=== PATIENT | male | born 1985 | race Caucasian/White ===

== ENCOUNTER 2020-06-10 20:13 | Inpatient (IN) | payer MEDICAID ==
[~2020-06-10] VITALS: Ht 170.2 cm; Wt 79.1 kg
[2020-06-10] MEDS ORDERED: SODIUM CHLORIDE 0.9% 1,000 ML IV ONE (20:45)
[2020-06-10 21:11] LABS: BG BASE EXCESS -2.5 mmol/L (-2.0-2.0); BG CARBOXYHEMOGLOBIN 1.2 % (0.5-1.5); BG FRACTION INSPIRED OXYGEN 21; BG HCO3 ACT 18.3 mmol/L (22.0-26.0); BG METHEMOGLOBIN 0.2 % (0.0-1.5); BG OXYGEN SATURATION 93.9 % (92.0-98.5); BG OXYHEMOGLOBIN 92.6 % (94.0-97.0); BG PCO2 22.6 mmHg (35.0-45.0); BG PH 7.526 (7.350-7.450); BG PO2 66.4 mmHg (75.0-100.0); BG SAMPLE SITE RIGHT RADIAL; BG TOTAL HEMOGLOBIN 13.6 g/dL (12.0-18.0); BG VENT MODE ROOM AIR
[2020-06-10 21:51] LABS: BASOPHILS % 0.6 % (0.0-2.0); HEMATOCRIT. 39.1 % (42.0-52.0); HEMOGLOBIN. 13.6 g/dL (14.0-18.0); LYMPHOCYTES % 14.7 % (20.0-50.0); MEAN CORPUSCULAR HEMOGLOBIN 33.2 pg (28.0-32.0); MEAN CORPUSCULAR VOLUME 95.8 fL (80.0-94.0); MEAN PLATELET VOLUME 10.6 fl (7.4-10.4); MONOCYTES % 7.3 % (2.0-8.0); NEUTROPHILS % 77.4 % (40.0-76.0); PLATELET 178 x1000/uL (130-400); RED BLOOD CELL COUNT 4.08 mill/uL (4.7-6.1); RED CELL DISTRIBUTION WIDTH 15.4 % (11.6-14.6)
[2020-06-10 21:52] LABS: CHLORIDE 86 mEq/L (98-107)
[2020-06-10 21:56] LABS: CLARITY URINE CLEAR (CLEAR); COLOR URINE ORANGE (YELLOW); ETHANOL BLOOD 105 mg/dL; KETONES URINE TRACE (NEGATIVE); LEUKOCYTE ESTERASE URINE 1+ (NEGATIVE); NITRITE URINE POSITIVE (NEGATIVE); OCCULT BLOOD URINE NEGATIVE (NEGATIVE); PROTEIN URINE 1+ (NEGATIVE); SPECIFIC GRAVITY URINE 1.032 (1.005-1.030); UROBILINOGEN URINE 0.2 E.U./dL (0.2-1.0)
[2020-06-10 22:01] LABS: D-DIMER 1.32 mg/L FEU (<0.50); INR 1.2
[2020-06-10 22:11] LABS: *BARBITURATES SCREEN URINE NEGATIVE (NEGATIVE)
[2020-06-10 22:12] LABS: *AMPHETAMINES SCREEN URINE PRESUMTIVE POSITIVE (NEGATIVE); *BENZODIAZEPINES SCREEN URINE NEGATIVE (NEGATIVE); *COCAINE SCREEN URINE NEGATIVE (NEGATIVE); OPIATES URINE SCREEN NEGATIVE (NEGATIVE); PHENCYCLIDINE URINE SCREEN NEGATIVE (NEGATIVE)
[2020-06-10 22:13] LABS: CANNABINOID URINE SCREEN NEGATIVE (NEGATIVE)
[2020-06-10 22:22] LABS: METHADONE URINE SCREEN NEGATIVE (NEGATIVE)
[2020-06-10] MEDS ORDERED: PIPERACILLIN/TAZOBACTAM 3.375GM/50ML PREMIX IV ONE (22:45)
[2020-06-10] MEDS ORDERED: ENOXAPARIN 60MG/0.6ML SYR SUBCUT ONE (22:45)
[2020-06-10] MEDS ORDERED: VANCOMYCIN 1 G PREMIX 200 ML IV SCH (22:45)
[2020-06-10] MEDS ORDERED: DEXAMETHASONE 10 MG/ML VIAL IV ONE (22:45)
[2020-06-10] MEDS ORDERED: ALBUTEROL 6.7GM HFA INHALER ORI ONE (22:45)
[2020-06-10] MEDS ORDERED: SODIUM BICARBONATE 8.4% 1 MEQ/ML 50ML SYR IV NR (23:00)
[2020-06-10] MEDS ORDERED: PIPERACILLIN/TAZ 3.375G PREMIX 50 ML IV NR (23:15)
[2020-06-10] MEDS ORDERED: MORPHINE SULFATE 4 MG/ML CPJ (NOT FOR IM USE) IV NR (23:45)
[2020-06-10] MEDS ORDERED: IOHEXOL-350 100 ML BOTTLE ONE (23:50)
[2020-06-11] MEDS ORDERED: MAGNESIUM/ALUMINUM HYDROXIDE/SIMETHICONE 30ML UDC PO PRN (00:15)
[2020-06-11] MEDS ORDERED: ONDANSETRON HCL 4MG/2ML INJ IV PRN (00:15)
[2020-06-11] MEDS ORDERED: ONDANSETRON HCL 4MG/2ML INJ IV NR (00:15)
[2020-06-11] MEDS ORDERED: ACETAMINOPHEN 325MG TABLET PO PRN (00:15)
[2020-06-11] MEDS ORDERED: AZITHROMYCIN 500 MG in DEXT 5% WATER 250 ML IV SCH (01:00)
[2020-06-11] MEDS ORDERED: CEFTRIAXONE 1 G PREMIX 50 ML IV SCH (08:00)
[2020-06-11 09:48] VITALS: BP 120/49
[2020-06-11 12:00] VITALS: BP 123/49
[2020-06-11] MEDS ORDERED: FUROSEMIDE 40MG/4ML VIAL IVP NR (12:00)
[2020-06-11] MEDS: THIAMINE HCL 100MG TABLET PO SCH (12:46)
[2020-06-11] MEDS: FOLIC ACID 1MG TABLET PO SCH (12:46)
[2020-06-11] MEDS: MULTIVITAMINS,THER W-MINERALS TABLET PO SCH (12:46)
[2020-06-11] MEDS: CEFTRIAXONE 1,000 MG in DEXTROSE 5% WATER 50 ML IV SCH (12:47)
[2020-06-11] MEDS: ENOXAPARIN 40MG/0.4ML SYR SUBCUT SCH (12:47)
[2020-06-11 16:00] VITALS: BP 110/52
[2020-06-11 20:00] VITALS: BP 121/58
[2020-06-11] MEDS: AZITHROMYCIN 500 MG in DEXT 5% WATER 250 ML IV SCH (21:35)
[2020-06-12] VITALS (9 sets, daily range): BP systolic 93–127; BP diastolic 41–97
[2020-06-12 06:21] LABS: CHLORIDE 90 mEq/L (98-107)
[2020-06-12 06:48] LABS: BASOPHILS % 0.3 % (0.0-2.0); HEMOGLOBIN. 12.2 g/dL (14.0-18.0); LYMPHOCYTES % 11.8 % (20.0-50.0); MEAN CORPUSCULAR VOLUME 97.9 fL (80.0-94.0); MEAN PLATELET VOLUME 10.9 fl (7.4-10.4); NEUTROPHILS % 81.9 % (40.0-76.0); PLATELET 144 x1000/uL (130-400); RED BLOOD CELL COUNT 3.68 mill/uL (4.7-6.1); RED CELL DISTRIBUTION WIDTH 15.8 % (11.6-14.6)
[2020-06-12] MEDS: LORAZEPAM 2MG/ML CPJ IV PRN ×2 (08:18→16:08)
[2020-06-12] MEDS: CHLORDIAZEPOXIDE 25MG CAPSULE PO SCH ×3 (08:18→18:13)
[2020-06-12] MEDS: FOLIC ACID 1MG TABLET PO SCH (09:33)
[2020-06-12] MEDS: THIAMINE HCL 100MG TABLET PO SCH (09:33)
[2020-06-12] MEDS: MULTIVITAMINS,THER W-MINERALS TABLET PO SCH (09:33)
[2020-06-12] MEDS: ENOXAPARIN 40MG/0.4ML SYR SUBCUT SCH (09:34)
[2020-06-12] MEDS: CEFTRIAXONE 1,000 MG in DEXTROSE 5% WATER 50 ML IV SCH (09:34)
[2020-06-12] MEDS ORDERED: IPRATROPIUM/ALBUTEROL 0.5-3(2.5)MG/3ML NEB HHN PRN (10:30)
[2020-06-12] MEDS ORDERED: HALOPERIDOL LACTATE 5MG/ML VIAL IM PRN ×2 (18:45→21:00)
[2020-06-12] MEDS ORDERED: LORAZEPAM 2MG/ML CPJ IM PRN (21:00)
[2020-06-12] MEDS: AZITHROMYCIN 500 MG in DEXT 5% WATER 250 ML IV SCH (21:00)
[2020-06-13] VITALS (43 sets, daily range): BP systolic 111–187; BP diastolic 24–134
[2020-06-13] MEDS ORDERED: FOLIC ACID 1 MG, THIAMINE HCL 100 MG, MVI, ADULT NO.1 10 ML in DEXTROSE 5% WATER 1,000 ML IV NR (01:00)
[2020-06-13] MEDS: DIPHENHYDRAMINE 50MG/ML VIAL IV PRN ×4 (02:24→19:08)
[2020-06-13] MEDS: LORAZEPAM 2MG/ML CPJ IV PRN ×5 (03:25→23:36)
[2020-06-13 04:56] LABS: BASOPHILS % 0.9 % (0.0-2.0); EOSINOPHILS % 0.5 % (0.0-5.0); HEMATOCRIT. 38.2 % (42.0-52.0); HEMOGLOBIN. 12.7 g/dL (14.0-18.0); MEAN CORPUSCULAR HEMOGLOBIN 32.4 pg (28.0-32.0); MEAN CORPUSCULAR VOLUME 97.8 fL (80.0-94.0); MEAN PLATELET VOLUME 9.9 fl (7.4-10.4); MONOCYTES % 10.4 % (2.0-8.0); NEUTROPHILS % 70.2 % (40.0-76.0); PLATELET 128 x1000/uL (130-400); RED CELL DISTRIBUTION WIDTH 15.8 % (11.6-14.6)
[2020-06-13 05:03] LABS: CHLORIDE 98 mEq/L (98-107)
[2020-06-13] MEDS: HALOPERIDOL LACTATE 5MG/ML VIAL IM PRN ×3 (05:07→21:33)
[2020-06-13] MEDS: CLONIDINE 0.1MG TABLET PO PRN ×2 (08:10→09:20)
[2020-06-13] MEDS: CHLORDIAZEPOXIDE 25MG CAPSULE PO SCH ×4 (08:11→15:45)
[2020-06-13] MEDS: ENOXAPARIN 40MG/0.4ML SYR SUBCUT SCH (08:20)
[2020-06-13] MEDS ORDERED: DEXT 5%/0.9% NACL 1,000 ML IV SCH (09:00)
[2020-06-13] MEDS ORDERED: POTASSIUM CHLORIDE INJ 10 MEQ in DEXT 5%/0.9% NACL 1,000 ML IV SCH (09:15)
[2020-06-13] MEDS: CEFTRIAXONE 1,000 MG in DEXTROSE 5% WATER 50 ML IV SCH (10:09)
[2020-06-13] MEDS: POTASSIUM CHLORIDE INJ 10 MEQ in DEXT 5%/0.9% NACL 1,000 ML IV SCH ×2 (10:09→23:47)
[2020-06-13] MEDS: AZITHROMYCIN 500 MG in DEXT 5% WATER 250 ML IV SCH (20:45)
[2020-06-14] VITALS (54 sets, daily range): BP systolic 84–182; BP diastolic 46–155
[2020-06-14] MEDS: DIPHENHYDRAMINE 50MG/ML VIAL IV PRN ×3 (03:28→20:10)
[2020-06-14] MEDS: LORAZEPAM 2MG/ML CPJ IV PRN ×4 (03:28→21:02)
[2020-06-14 04:53] LABS: BASOPHILS % 0.5 % (0.0-2.0); EOSINOPHILS % 1.9 % (0.0-5.0); HEMATOCRIT. 37.8 % (42.0-52.0); HEMOGLOBIN. 12.5 g/dL (14.0-18.0); MEAN CORPUSCULAR HEMOGLOBIN 32.5 pg (28.0-32.0); MEAN CORPUSCULAR VOLUME 98.5 fL (80.0-94.0); MEAN PLATELET VOLUME 9.7 fl (7.4-10.4); MONOCYTES % 9.8 % (2.0-8.0); NEUTROPHILS % 67.8 % (40.0-76.0); PLATELET 131 x1000/uL (130-400); RED BLOOD CELL COUNT 3.84 mill/uL (4.7-6.1); RED CELL DISTRIBUTION WIDTH 16.2 % (11.6-14.6)
[2020-06-14 05:27] LABS: CHLORIDE 109 mEq/L (98-107)
[2020-06-14] MEDS: HALOPERIDOL LACTATE 5MG/ML VIAL IM PRN ×2 (08:33→16:51)
[2020-06-14] MEDS: CEFTRIAXONE 1,000 MG in DEXTROSE 5% WATER 50 ML IV SCH (08:33)
[2020-06-14] MEDS: ENOXAPARIN 40MG/0.4ML SYR SUBCUT SCH (08:36)
[2020-06-14] MEDS: CHLORDIAZEPOXIDE 25MG CAPSULE PO SCH ×3 (08:36→16:04)
[2020-06-14] MEDS: FOLIC ACID 1 MG, THIAMINE HCL 100 MG, MVI, ADULT NO.1 10 ML in DEXTROSE 5% WATER 1,000 ML IV SCH (09:23)
[2020-06-14] MEDS: POTASSIUM CHLORIDE INJ 10 MEQ in DEXT 5%/0.9% NACL 1,000 ML IV SCH (18:25)
[2020-06-14] MEDS: AZITHROMYCIN 500 MG in DEXT 5% WATER 250 ML IV SCH (20:10)
[2020-06-15] VITALS (85 sets, daily range): BP systolic 113–173; BP diastolic 64–148
[2020-06-15] MEDS: HALOPERIDOL LACTATE 5MG/ML VIAL IM PRN ×2 (00:51→11:07)
[2020-06-15] MEDS: CHLORDIAZEPOXIDE 25MG CAPSULE PO SCH ×3 (08:29→17:00)
[2020-06-15] MEDS: CEFTRIAXONE 1,000 MG in DEXTROSE 5% WATER 50 ML IV SCH (08:32)
[2020-06-15] MEDS: LORAZEPAM 2MG/ML CPJ IV PRN ×2 (08:32→15:39)
[2020-06-15] MEDS: ENOXAPARIN 40MG/0.4ML SYR SUBCUT SCH (08:32)
[2020-06-15] MEDS: FOLIC ACID 1 MG, THIAMINE HCL 100 MG, MVI, ADULT NO.1 10 ML in DEXTROSE 5% WATER 1,000 ML IV SCH (08:52)
[2020-06-15] MEDS: POTASSIUM CHLORIDE INJ 10 MEQ in DEXT 5%/0.9% NACL 1,000 ML IV SCH (22:23)
[2020-06-16] VITALS (49 sets, daily range): BP systolic 122–170; BP diastolic 65–108
[2020-06-16] MEDS: ENOXAPARIN 40MG/0.4ML SYR SUBCUT SCH (09:45)
[2020-06-16] MEDS: CHLORDIAZEPOXIDE 25MG CAPSULE PO SCH ×3 (09:45→17:34)
[2020-06-16] MEDS: FOLIC ACID 1 MG, THIAMINE HCL 100 MG, MVI, ADULT NO.1 10 ML in DEXTROSE 5% WATER 1,000 ML IV SCH (10:01)
[2020-06-16 13:23] LABS: CHLORIDE 109 mEq/L (98-107)
[2020-06-17] VITALS: BP 127/77
[2020-06-17 04:00] VITALS: BP 134/89
[2020-06-17 08:00] VITALS: BP 141/90
[2020-06-17] MEDS: ENOXAPARIN 40MG/0.4ML SYR SUBCUT SCH (08:53)
[2020-06-17] MEDS: CHLORDIAZEPOXIDE 25MG CAPSULE PO SCH (08:53)
[2020-06-17 13:06] VITALS: BP 135/78
== END 2020-06-17 14:10 | disposition home or self-care (01) | DRG 720 ==
LOC: ER 20:13 → 7WST 23:35 → EDBEDREQ 23:43 → EDBEDREQSVC 23:43 → EDBEDREQTM 23:43 → CANRESERV 06-11 00:22 → ENRESERV 06-11 00:22 → EDBEDREQSVC 06-11 00:36 → EDBEDREQTM 06-11 00:36 → ENRESERV 06-11 07:14 → 6WST 06-11 21:13 → MICUSO 06-12 22:41 → 8WST 06-16 11:24
PROVIDERS: ADMIT Hospitalist; ATTEND Hospitalist
DX: A41.9 Sepsis, unspecified organism (principal); J96.01 Acute respiratory failure with hypoxia; E87.2 Acidosis; J18.9 Pneumonia, unspecified organism; I27.20 Pulmonary hypertension, unspecified; I50.30 Unspecified diastolic (congestive) heart failure; E87.1 Hypo-osmolality and hyponatremia; E87.70 Fluid overload, unspecified; N39.0 Urinary tract infection, site not specified; F15.10 Other stimulant abuse, uncomplicated; Z20.822 Contact with and (suspected) exposure to COVID-19; F10.239 Alcohol dependence with withdrawal, unspecified; Z60.2 Problems related to living alone; R74.01 Elevation of levels of liver transaminase levels; Z78.1 Physical restraint status; E80.6 Other disorders of bilirubin metabolism
CPT/HCPCS: 36415; 36600; 71045; 71275; 80048; 80053; 80305; 80320; 81003; 82375; 82728; 82805; 83605; 83615; 83880; 84145; 84484; 85025; 85379; 85384; 86140; 93005; 93306; 94640; 99291; A6261; J0456; J0696; J1100; J1200; J1630; J1650; J1940; J2060; J2270; J2405; J2543; J3370; J3411; J3480; J3490; J7030; J7040; J7042; J7060; J7070; Q9967; U0003; G0480

== ENCOUNTER 2020-07-08 16:19 | Emergency (ER) | payer MEDICAID ==
[~2020-07-08] VITALS: Ht 167.6 cm; Wt 82.0 kg
[2020-07-08] MEDS ORDERED: HYDR-459 PO (16:45)
[2020-07-08] MEDS ORDERED: HYDROXYZINE 25MG TABLET PO ONE (17:30)
[2020-07-08 17:59] LABS: HEMATOCRIT. 39.9 % (42.0-52.0); HEMOGLOBIN. 13.7 g/dL (14.0-18.0); LYMPHOCYTES % 38.6 % (20.0-50.0); MEAN CORPUSCULAR HEMOGLOBIN 31.9 pg (28.0-32.0); MEAN CORPUSCULAR VOLUME 93.3 fL (80.0-94.0); MEAN PLATELET VOLUME 8.8 fl (7.4-10.4); MONOCYTES % 8.2 % (2.0-8.0); NEUTROPHILS % 50.2 % (40.0-76.0); PLATELET 213 x1000/uL (130-400); RED BLOOD CELL COUNT 4.28 mill/uL (4.7-6.1); RED CELL DISTRIBUTION WIDTH 14.8 % (11.6-14.6)
[2020-07-08 18:01] LABS: CHLORIDE 108 mEq/L (98-107)
[2020-07-08] MEDS ORDERED: HYDR-3992 MT (18:34)
[2020-07-08 18:45] VITALS: BP 129/86
[2020-07-08 19:13] LABS: CLARITY URINE CLEAR (CLEAR); COLOR URINE YELLOW (YELLOW); KETONES URINE NEGATIVE (NEGATIVE); LEUKOCYTE ESTERASE URINE NEGATIVE (NEGATIVE); NITRITE URINE NEGATIVE (NEGATIVE); OCCULT BLOOD URINE NEGATIVE (NEGATIVE); PH URINE 5.5 (4.5-8.0); PROTEIN URINE NEGATIVE (NEGATIVE); SPECIFIC GRAVITY URINE 1.025 (1.005-1.030)
== END 2020-07-08 18:48 | disposition home or self-care (01) ==
LOC: ER 16:19
DX: F10.280 Alcohol dependence with alcohol-induced anxiety disorder (principal); F43.0 Acute stress reaction; Y90.9 Presence of alcohol in blood, level not specified; R03.0 Elevated blood-pressure reading, without diagnosis of hypertension; D64.9 Anemia, unspecified; F15.10 Other stimulant abuse, uncomplicated
CPT/HCPCS: 36415; 80053; 81003; 83735; 85025; 99284